=== PATIENT | female | born 1955 | race Caucasian/White ===

== ENCOUNTER → 2016-12-20 | Outpatient (CLI) | payer MEDICARE | LOC: RAD 14:07 | PROVIDERS: ATTEND Chiropractor | DX: M25.511 Pain in right shoulder (principal); S40.012A Contusion of left shoulder, initial encounter; M99.07 Segmental and somatic dysfunction of upper extremity; W01.0XXA Fall on same level from slipping, tripping and stumbling without subsequent striking against object, initial encounter | CPT/HCPCS: 73030 ==